=== PATIENT | male | born 1975 | race Caucasian/White ===

== ENCOUNTER 2018-12-15 23:27 | Emergency (ER) | payer OTHER, MEDICAID ==
[~2018-12-15] VITALS: Ht 177.8 cm; Wt 85.3 kg
[2018-12-16 00:24] VITALS: BP 114/78
== END 2018-12-16 00:25 ==
LOC: ER 23:30
DX: T75.4XXA Electrocution, initial encounter (principal); J45.909 Unspecified asthma, uncomplicated; F32.9 Major depressive disorder, single episode, unspecified; Z59.0 Homelessness; W86.8XXA Exposure to other electric current, initial encounter; Y93.02 Activity, running; Y92.89 Other specified places as the place of occurrence of the external cause; Y99.8 Other external cause status